=== PATIENT | female | born 1990 | race Caucasian/White ===

== ENCOUNTER 2017-02-06 19:14 | Emergency (ER) | payer MEDICAID ==
[~2017-02-06] VITALS: Ht 157.5 cm; Wt 56.8 kg
[2017-02-06 19:21] VITALS: BP 144/83
== END 2017-02-06 21:23 | disposition home or self-care (01) ==
LOC: ED 21:05
DX: S83.92XA Sprain of unspecified site of left knee, initial encounter (principal); W18.30XA Fall on same level, unspecified, initial encounter; Y93.39 Activity, other involving climbing, rappelling and jumping off; Y99.8 Other external cause status; Y92.89 Other specified places as the place of occurrence of the external cause
CPT/HCPCS: 99284